=== PATIENT | female | born 2000 | race African-American/Black ===

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

== ENCOUNTER 2025-07-26 20:10 | Emergency (ER) | payer MEDICAID ==
[~2025-07-26] VITALS: Ht 160 cm; Wt 49.1 kg
[~2025-07-26 20:10] MED LIST: IBUP-2028 MT
[2025-07-26 20:16] VITALS: TEMP 37; O2SAT 98
[2025-07-26 20:39] LABS: CLARITY URINE CLEAR (CLEAR); COLOR URINE YELLOW (YELLOW); GLUCOSE URINE NEGATIVE (NEGATIVE); KETONES URINE TRACE (NEGATIVE); LEUKOCYTE ESTERASE URINE 1+ (NEGATIVE); NITRITE URINE NEGATIVE (NEGATIVE); OCCULT BLOOD URINE 1+ (NEGATIVE); PH URINE 7.0 (4.5-8.0); PROTEIN URINE NEGATIVE (NEGATIVE); SPECIFIC GRAVITY URINE 1.010 (1.005-1.030); UROBILINOGEN URINE 0.2 E.U./dL (0.2-1.0)
[2025-07-26 20:59] LABS: BACTERIA URINE TRACE; SQUAMOUS EPITHELIAL CELL URINE FEW /lpf (RARE/1+)
[2025-07-26] MEDS ORDERED: SULF1TAB48 MT (21:59)
[2025-07-26] MEDS ORDERED: SULFAMETHOXAZOLE/TRIMETHOPRIM 800/160MG TABLET PO ONE (22:00)
[2025-07-26] MEDS ORDERED: CIPR-263 MT (22:13)
[2025-07-26 22:15] VITALS: BP 137/55; PULSE 79; RESP 18; O2SAT 99
[2025-07-26] MEDS: SULFAMETHOXAZOLE/TRIMETHOPRIM 800/160MG TABLET PO SCH (22:15)
== END 2025-07-26 22:16 | disposition home or self-care (01) ==
LOC: ER 20:10
DX: N39.0 Urinary tract infection, site not specified (principal); Z88.0 Allergy status to penicillin
CPT/HCPCS: 81003; 81025; 99283